=== PATIENT | female | born 1940 | race Caucasian/White ===

== ENCOUNTER 2016-06-29 06:33 | Inpatient (IN) | payer MEDICARE, BC ==
[2016-06-29] VITALS (10 sets, daily range): BP systolic 94–162; BP diastolic 47–70
[~2016-06-29] VITALS: Ht 170.2 cm; Wt 72.0 kg
[~2016-06-29 06:33] MED LIST: (NONE)25 ML; (NONE)25 ML IM; ALENDRONATE70 MG PO; ALPRAZOLAM0.5 M1 PO; ALPRAZOLAM1 MG PO; ALTACE10 M1 PO; ALTACE10 MG PO; ALTACE2.5 MG OR; AMLODIPINE5 MG PO; ASPIRIN325 M1 OR; ASPIRIN325 MG PO; CALCIUM600 M1 PO; CELEXA10 MG OR; CYANOCOBALAM1000 MC1 IM; CYANOCOBALAM1000 MCG IJ; CYANOCOBALAM1000 MCG IM; CYMBALTA30 MG PO; D31000 UNIT PO; EFFEXOR XR37.5 MG PO; EFFEXOR37.5 MG OR; FLUARIX QUADRIV1 IN1 IM; FLUARIX QUADRIV1 INJ IM; GABAPENTIN300 MG PO; HUMULIN R1 M1 SC; IMDUR30 MG OR; ISOSORB MONO30 MG PO; ISOSORBIDE MONO30 MG PO; LIPITOR10 MG OR; LIPITOR40 M1 PO; LIPITOR40 MG PO; LO-DOSE ASA81 MG PO; METFORMIN500 M1 OR; NEURONTIN300 MG OR; NITRO; NORVASC PO; NORVASC5 MG OR; NORVASC5 MG PO; NOVOLIN 70/30 SC; PHENAZOPYRID200 MG PO; PNEUMOVAX 23 IM; RAMIPRIL2.5 MG PO; SYNTHROID OR; SYNTHROID50 MCG OR; SYNTHROID75 MCG PO; TRAMADOL HCL50 MG PO; VENLAFAXINE37.5 M2 PO; VITAMIN B-121000 MC1; VITAMIN B-121000 MC1 IM; XANAX0.25 MG OR; [UNRECOGNIZED DRUG - OTHER]
--- NOTE | 2016-06-29 06:33 | NUR ---
PT. IMMEDIATELY TO TREATMENT ROOM #10 ON ARRIVAL TO ED.
[2016-06-29 07:00] LABS: HEMATOCRIT 36.9 % (37.0-47.0); HEMOGLOBIN 12.3 g/dl (12.0-16.0); IMMATURE GRANULOCYTES 1.2 % (0.0-1.0); MEAN CELL VOLUME 90.9 fL CALC (80.0-100.0); MEAN CORPUSCULAR HGB 30.3 pG CALC (26.0-32.0); MEAN CORPUSCULAR HGB CONC 33.3 g/L CALC (32.0-36.0); NEUT# 9.07 thou/uL (2.00-7.15); RED BLOOD COUNT 4.06 mill/uL (4.20-5.60); RED CELL DISTRI WIDTH 12.6 % (11.5-15.5)
[2016-06-29 07:09] LABS: ALKALINE PHOSPHATASE 88 u/l (38-126); ANION GAP 26 (6-22 (CALC)); BILIRUBIN, TOTAL 1.2 mg/dL (0.0-1.4); BUN 26 mg/dL (8-23); BUN/CREATININE RATIO 32 (12-20 (CALC)); CALCIUM 9.4 mg/dL (8.4-10.2); CARBON DIOXIDE 13 mmol/l (22-30); CHLORIDE 100 mmol/l (95-108); CREATININE 0.8 mg/dL (0.5-1.0); GFR > 60 ML/MIN (>=60 (CALC)); GFR FOR AFR.AMER. > 60 ML/MIN (>=60 (CALC)); POTASSIUM 4.6 mmol/l (3.5-5.1); SGOT/AST 59 u/l (9-36); SGPT/ALT 47 u/l (11-66); SODIUM 135 mmol/l (137-146); TOTAL PROTEIN 6.6 g/dL (6.3-8.2)
[2016-06-29 07:17] LABS: GLUCOSE 462 mg/dL (82-115)
[2016-06-29] MEDS ORDERED: ALENDRONATE70 MG PO (07:18)
--- NOTE | 2016-06-29 07:25 | NUR ---
PT ACTIVELY VOMITING. NOTIFIED.
[2016-06-29] MEDS ORDERED: NOVOLOG100 UNIT/M SC (07:29)
--- NOTE | 2016-06-29 07:30 | NUR ---
EMS NS LITER COMPLETE.
--- NOTE | 2016-06-29 07:36 | NUR ---
LACTIC ACID BC1 DRAWN VIA VIRGIN IV START RAC
[2016-06-29 07:40] LABS: MYOGLOBIN 299 ng/mL (0 - 62)
--- NOTE | 2016-06-29 08:12 | NUR ---
EMPTIED 300 OF URINE SENT LAB FOR TESTING
[2016-06-29 08:13] LABS: URINE BILIRUBIN - DIPSTICK NEGATIVE (NEGATIVE); URINE BLOOD DIPSTICK NEGATIVE (NEGATIVE); URINE CLARITY CLEAR; URINE COLOR YELLOW; URINE GLUCOSE - DIPSTICK >=1000 mg/dL (NEGATIVE); URINE KETONE >=80 mg/dL (NEGATIVE); URINE LEUK ESTERASE NEGATIVE (NEGATIVE); URINE NITRITE - DIPSTICK NEGATIVE (Negative); URINE PROTEIN - DIPSTICK NEGATIVE (NEG-TRACE); URINE UROBILINOGEN - DIPSTICK 0.2 E.U./dL (0.2)
--- NOTE | 2016-06-29 08:18 | NUR ---
PT RESTING ON STRETCHER. RESP EVEN AND UNLABORED. SKIN WARM AND DRY. PT A&O X3. PT STATES NAUSEA IS "MUCH BETTER". ZOSYN INFUSING. INSULING GTT INFUSING AT 5 UNITS/HR. NS BOLUS INFUSING. ALL PER MD ORDER. BOTH IV SITES HEALTHY. PT AWAITING ADMISSION. FAMILY AT BEDSIDE. PT STATES NO NEEDS AT THIS TIME. CALL LIGHT WITHIN REACH.
--- NOTE | 2016-06-29 08:46 | NUR ---
INSULING GTT REMAINING AT 5 UNITS/HR FOR ACCUCHECK OF 407
--- NOTE | 2016-06-29 09:11 | NUR ---
PT RESTING COMFORTABLY ON STRETCHER. RESP EVEN AND UNLABORED. SKIN WARM AND DRY. PT A&O X3. FAMILY AT BEDSIDE. PT DENIES NAUSEA. PT STATES FEELS MUCH BETTER. PT AWAITING ADMISSION. CALL LIGHT WITHIN REACH.
--- NOTE | 2016-06-29 09:20 | NUR ---
SECOND LACTIC ACID DRAWN
--- NOTE | 2016-06-29 09:32 | NUR ---
ASSISTED PT UP TO BSC, URINATED WITHOUT DIFFICULTY. NO ADVERSE EFFECTS NOTED. RETURNED TO BED WITHOUT DIFFICULTY
--- NOTE | 2016-06-29 09:47 | NUR ---
INSULIN GTT TITRATED TO 4 UNITS/HR FOR 376 ACCUCHECK
--- NOTE | 2016-06-29 10:46 | NUR ---
BEDSIDE REPORT GIVEN TO NATALIIA BACON AND POLI PALMA LPN.
--- NOTE | 2016-06-29 10:46 | NUR ---
Admission Note Report Given to: NATALIIA BACON AND POLI PALMA LPN Transported by: Wheelchair X Stretcher Transported with: C Nurse Transporter X Patent IV O2 X Boxing Machine Operator PT IN STABLE CONDITION. IV SITE HEALTHY. INSULIN GTT INFUSING AT 4 UNITS/HR FOR ACCUCHECK OF 346
--- NOTE | 2016-06-29 10:55 | NUR ---
PT ARRIVED TO THE UNIT VIA STRETCHER FROM ER, PT ASSISTED WITH SLIDING OVER TO ICU BED PT TOLERATED WELL, HR 102, RESP. 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
--- NOTE | 2016-06-29 11:15 | NUR ---
PT ASSISTED TO THE BSC THEN BACK TO BED, PT AMBULATED WITH A STRONG STEADY GAIT, PT REMINDED TO CALL FOR ASSISTANCE, CALL GONZALEZ WITHIN REACH
--- NOTE | 2016-06-29 11:45 | NUR ---
PT LAYING IN BED TALKING TO FAMILY WHO ARE BEDSIDE
[2016-06-29 12:09] LABS: ANION GAP 23 (6-22 (CALC)); BUN 25 mg/dL (8-23); BUN/CREATININE RATIO 31 (12-20 (CALC)); CALCIUM 8.7 mg/dL (8.4-10.2); CARBON DIOXIDE 11 mmol/l (22-30); CHLORIDE 108 mmol/l (95-108); CREATININE 0.8 mg/dL (0.5-1.0); GFR > 60 ML/MIN (>=60 (CALC)); GFR FOR AFR.AMER. > 60 ML/MIN (>=60 (CALC)); GLUCOSE 294 mg/dL (82-115); POTASSIUM 4.9 mmol/l (3.5-5.1); SODIUM 138 mmol/l (137-146)
--- NOTE | 2016-06-29 12:38 | NUR ---
IN TO SEE PATIENT, PLAN OF CARE DISCUSSED, AWARE OF RECENT CHEM 7 RESULTS,AND ACCU CHECK RESULTS.
--- NOTE | 2016-06-29 13:30 | NUR ---
PT RESTING WITH EYES CLOSED, AROUSES EASILY TO VERBAL STIMULI, VERBALIZES NO COMPLAINTS, CALL GONZALEZ WITHIN REACH
--- NOTE | 2016-06-29 15:07 | NUR ---
PT WATCHING TV, VERBALIZES NO COMPLAINTS, NO S/S OF DISTRESS, CALL GONZALEZ WITHIN REACH
[2016-06-29 15:58] LABS: HEMATOCRIT 32.1 % (37.0-47.0); HEMOGLOBIN 10.9 g/dl (12.0-16.0); IMMATURE GRANULOCYTES 0.3 % (0.0-1.0); MEAN CELL VOLUME 91.5 fL CALC (80.0-100.0); MEAN CORPUSCULAR HGB 31.1 pG CALC (26.0-32.0); NEUT# 6.25 thou/uL (2.00-7.15); RED BLOOD COUNT 3.51 mill/uL (4.20-5.60); RED CELL DISTRI WIDTH 13.1 % (11.5-15.5)
[2016-06-29 16:20] LABS: ANION GAP 16 (6-22 (CALC)); BUN 25 mg/dL (8-23); BUN/CREATININE RATIO 32 (12-20 (CALC)); CALCIUM 8.5 mg/dL (8.4-10.2); CARBON DIOXIDE 20 mmol/l (22-30); CHLORIDE 108 mmol/l (95-108); CREATININE 0.8 mg/dL (0.5-1.0); GFR > 60 ML/MIN (>=60 (CALC)); GFR FOR AFR.AMER. > 60 ML/MIN (>=60 (CALC)); GLUCOSE 189 mg/dL (82-115); POTASSIUM 4.5 mmol/l (3.5-5.1); SODIUM 140 mmol/l (137-146)
--- NOTE | 2016-06-29 17:16 | NUR ---
PT GIVEN ICE CHIPS AND TOLERATING WELL, PT VERBALIZES NO COMPLAINTS, CALL GONZALEZ WITHIN REACH
--- NOTE | 2016-06-29 17:45 | NUR ---
SETUP ASSISTANCE PROVIDED WITH PM MEAL, PT SHOWS NO S/S OF DISTRESS, REMINDED TO US CALL LIGHT FOR ASSISTANCE, CALL GONZALEZ WITHIN REACH
--- NOTE | 2016-06-29 18:50 | NUR ---
REPORT FROM Steven PILLAI LPN. ASSUMED PT. CARE.
--- NOTE | 2016-06-29 20:30 | NUR ---
PT. ASSISTED TO BSC. PT. AMBULATORY FROM COMMODE BACK TO BED IN NO DISTRESS. APPROX 350 CC OF CONCENTRATED URINE OUT AT THIS TIME. REPOSITIONED FOR COMFORT. DENIES OTHER COMPLAINTS OR NEEDS. DENIES PAIN AT THIS TIME.
--- NOTE | 2016-06-29 21:15 | NUR ---
PT. REQUESTING HER XANAX FOR SLEEP. CALL PLACED TO DR. DONOHUE FOR MED REQUEST. WILL ADMINISTER WHEN PROFILED BY PHARMACY. DENIES COMPLAINTS OF PAIN OR NEED AT THIS TIME. VSS.
--- NOTE | 2016-06-29 22:49 | NUR ---
PT. RESTING IN BED WITH EYES CLOSED. REMAINS AROUSABLE TO LIGHT VERBAL STIMULI. DENIES COMPLAINTS OR NEEDS AT THIS TIME. VSS. WILL CONTINUE TO MONITOR.
[2016-06-30] VITALS: BP 152/69
--- NOTE | 2016-06-30 00:15 | NUR ---
PT. REMAINS STABLE AT THIS TIME. VSS. DENIES COMPLAINTS OR NEEDS. REMAINS ROUSABLE TO LIGHT VERBAL STIMULI. IV FLUIDS CONTINUE TO INFUSE AT 150 ML/HR. CALL LIGHT REMAINS WITHIN REACH. WILL CONTINUE TO MONITOR.
--- NOTE | 2016-06-30 01:42 | NUR ---
PT. REMAINS RESTING IN BED WITH EYES CLOSED. RESPS EVEN AND UNLABORED. SKIN WARM AND DRY. VSS.
[2016-06-30 02:00] VITALS: BP 155/71
--- NOTE | 2016-06-30 03:19 | NUR ---
PT. AWAKE, ALERT, ORIENTED X 3. ASSISTED TO BSC. STEADY. IV FLUIDS CONTINUE TO INFUSE. PT. DENIES OTHER COMPLAINT OR NEED. VSS. CALL LIGHT WITHIN REACH. WILL CONTINUE TO MONITOR. APPROX 150 CC URINARY OUTPUT AT THIS TIME.
[2016-06-30 04:00] VITALS: BP 155/69
--- NOTE | 2016-06-30 04:00 | NUR ---
LAB AT BEDSIDE AT THIS TIME. PT. SPO2 HAS DECREASED TO UPPER 80'S. PT. PLACED ON 2L VIA NC. PT. IS IN NO DISTRESS AND REMAINS SINUS RHYTHM. NO TACHYCARDIA OR TACHYPNEIA NOTED. SPO2 HAS INCREASED TO 92%. PT. DENIES COMPLAINT OR NEED. SKIN WARM AND DRY. REMAINS AFEBRILE.
[2016-06-30 04:42] LABS: HEMATOCRIT 34.7 % (37.0-47.0); HEMOGLOBIN 11.6 g/dl (12.0-16.0); IMMATURE GRANULOCYTES 0.2 % (0.0-1.0); MEAN CELL VOLUME 91.1 fL CALC (80.0-100.0); MEAN CORPUSCULAR HGB 30.4 pG CALC (26.0-32.0); MEAN CORPUSCULAR HGB CONC 33.4 g/L CALC (32.0-36.0); NEUT# 4.78 thou/uL (2.00-7.15); RED BLOOD COUNT 3.81 mill/uL (4.20-5.60); RED CELL DISTRI WIDTH 13.1 % (11.5-15.5)
[2016-06-30 05:01] LABS: ALBUMIN 3.2 g/dL (3.2-5.0); ALKALINE PHOSPHATASE 59 u/l (38-126); ANION GAP 15 (6-22 (CALC)); BILIRUBIN, TOTAL 0.7 mg/dL (0.0-1.4); BUN 17 mg/dL (8-23); BUN/CREATININE RATIO 27 (12-20 (CALC)); CALCIUM 8.5 mg/dL (8.4-10.2); CARBON DIOXIDE 21 mmol/l (22-30); CHLORIDE 106 mmol/l (95-108); CREATININE 0.6 mg/dL (0.5-1.0); GFR > 60 ML/MIN (>=60 (CALC)); GFR FOR AFR.AMER. > 60 ML/MIN (>=60 (CALC)); GLUCOSE 275 mg/dL (82-115); SGOT/AST 42 u/l (9-36); SGPT/ALT 43 u/l (11-66); SODIUM 139 mmol/l (137-146); TOTAL PROTEIN 5.8 g/dL (6.3-8.2)
--- NOTE | 2016-06-30 06:00 | NUR ---
PT. AWAKE, ALERT, ORIENTED X 3. NO DISTRESS. ASSISTED TO BEDSIDE COMMODE. APPROX 500 CC URINE OUT AT THIS TIME. DENIES COMPLAINTS OF PAIN OR NEED.
--- NOTE | 2016-06-30 07:15 | NUR ---
PT ALERT AND ORIENTED OOB WITH STAND BY ASSIST OT USE BSC, VOIDS W/O INCIDENT, PROVIDES OWN NANNETTE CARE AND BACK TO BE WITH SAME ASSIST, AM ASSESSMENT COMPLETED SEE INTERVENTIONS, SKIN WARM DRY AND INTACT, IVF INFUSING AT PRESCRIBED RATE, ACCUC CHECK COMPLETED AND COVERAGE PROVIDED PER ORDERS, SAFETY MEASURES REINFORCED, ENCOURAGED TO CALL FOR ANY NEEDED ASSISTANCE, WILL CONTINUE TO MONITOR
[2016-06-30 08:00] VITALS: BP 150/65
--- NOTE | 2016-06-30 08:22 | NUR ---
TOLERATED AM MEAL WELL, INTO SEE PATIENT AND PLAN OF CARE DISCUSSED INCLUDING PLANNED D/C TODAY, ALL QUESTIONS ANSWERED, PT VERBALIZES UNDERSTANDING
--- NOTE | 2016-06-30 10:50 | NUR ---
Discharge instructions given. Patient verbalizes understanding of same. Discharged in stable condition via Wheelchair to Home with family. All belongings sent with pt.
== END 2016-06-30 10:50 | disposition home or self-care (01) | DRG 639 ==
LOC: ENPENDDIS → ED 06:33 → ED-I 08:04 → ED 08:14 → ICU 08:15
PROVIDERS: Emergency Medicine; ADMIT Internal Medicine Geriatric Medicine; ATTEND Internal Medicine Geriatric Medicine
DX: E13.10 Other specified diabetes mellitus with ketoacidosis without coma (principal); E86.0 Dehydration; I10 Essential (primary) hypertension; I25.10 Atherosclerotic heart disease of native coronary artery without angina pectoris; M19.90 Unspecified osteoarthritis, unspecified site; E03.9 Hypothyroidism, unspecified; H54.42 Blindness, left eye, normal vision right eye; F41.1 Generalized anxiety disorder; M81.0 Age-related osteoporosis without current pathological fracture; Z96.41 Presence of insulin pump (external) (internal); Z79.4 Long term (current) use of insulin

== ENCOUNTER → 2018-04-11 | Outpatient (REF) | payer MEDICARE, BC ==
[~2018-04-11] MED LIST changes: +NOVOLOG100 UNIT/M SC
== END | disposition home or self-care (01) ==
LOC: MAMMO 09:18
PROVIDERS: ATTEND Internal Medicine Geriatric Medicine
DX: Z12.31 Encounter for screening mammogram for malignant neoplasm of breast (principal)

== ENCOUNTER → 2018-04-26 | Outpatient (REF) | payer MEDICARE, BC ==
[2018-04-26 10:00] LABS: ALBUMIN 4.1 g/dL (3.2-5.0); ALKALINE PHOSPHATASE 61 u/l (38-126); BILIRUBIN, TOTAL 0.8 mg/dL (0.0-1.4); BUN 18 mg/dL (8-23); BUN/CREATININE RATIO 22 (12-20 (CALC)); CARBON DIOXIDE 28 mmol/l (22-30); CHLORIDE 102 mmol/l (95-108); CREATININE 0.8 mg/dL (0.5-1.0); GFR > 60 ML/MIN (>=60 (CALC)); GFR FOR AFR.AMER. > 60 ML/MIN (>=60 (CALC)); SGOT/AST 19 u/l (9-36); SODIUM 137 mmol/l (137-146); TOTAL PROTEIN 6.5 g/dL (6.3-8.2)
[2018-04-26 10:02] LABS: ANION GAP 11 (6-22 (CALC)); POTASSIUM 4.2 mmol/l (3.5-5.1)
[2018-04-26 10:13] LABS: HEMATOCRIT 40.7 % (37.0-47.0); HEMOGLOBIN 13.3 g/dl (12.0-16.0); IMMATURE GRANULOCYTES 0.3 % (0.0-5.0); MEAN CELL VOLUME 93.6 fL CALC (80.0-100.0); MEAN CORPUSCULAR HGB 30.6 pG CALC (26.0-32.0); MEAN CORPUSCULAR HGB CONC 32.7 g/L CALC (32.0-36.0); NEUT# 1.84 thou/uL (2.00-7.15); RED BLOOD COUNT 4.35 mill/uL (4.20-5.60); RED CELL DISTRI WIDTH 12.1 % (11.5-15.5)
[2018-04-26 10:31] LABS: TSH, 3RD GENERATION 6.94 uIU/mL (0.47 - 4.68)
== END | disposition home or self-care (01) ==
LOC: LAB 08:30
PROVIDERS: ATTEND Internal Medicine Geriatric Medicine
DX: I10 Essential (primary) hypertension (principal); E03.9 Hypothyroidism, unspecified

== ENCOUNTER 2023-07-31 12:50 | Observation (INO) | payer MEDICARE, BC ==
[2023-07-31] VITALS (33 sets, daily range): BP systolic 132–209; BP diastolic 66–176
[~2023-07-31] VITALS: Ht 170.2 cm; Wt 69.0 kg
[~2023-07-31 12:50] MED LIST changes: +ABALOPARATIDE; +AMLODIPINE BES2.5 MG PO; +AMLODIPINE BESYL5 MG PO; +ASPIRINCHW 81MG PO; +CARVEDILOL12.5 MG PO; +EZETIMIBE10 MG PO; +LANTUS100 UNIT; +LANTUS100 UNIT SC; +LEVOTHYROXIN75 MC1 PO; +LEVOTHYROXIN75 MCG PO; +LIPITOR80 M1 PO; +LOSARTAN POTASS50 MG PO; +NITROSTAT0.4 MG SL; +NOVOLOG100 UNIT SC; +POT CHLORIDE10 ME5 PO; +PROMETHAZINE HY25 M1 PO; +VENLAFAXINE H37.5 M2 PO; +VITAMIN D-32000 UNI1 PO
--- NOTE | 2023-07-31 12:50 | NUR ---
PT BROUGHT BACK TO ER ROOM 14 VIA EMS
[2023-07-31 13:16] LABS: BASO% 0.4 % (0-3); HEMATOCRIT 39.6 % (37.0-47.0); HEMOGLOBIN 13.8 g/dl (12.0-16.0); IMMATURE GRANULOCYTES 0.1 % (0.0-5.0); LYMPH% 33.6 % (15-41); MEAN CELL VOLUME 91.5 fL CALC (80.0-100.0); MEAN CORPUSCULAR HGB 31.9 pG CALC (26.0-32.0); MEAN CORPUSCULAR HGB CONC 34.8 g/dL CAL (32.0-36.0); MONO% 7.8 % (2-13); NEUT# 4.45 thou/uL (2.00-7.15); NEUT% 55.1 % (42-76); RED BLOOD COUNT 4.33 mill/uL (4.20-5.60); RED CELL DISTRI WIDTH 12.2 % (11.5-15.5)
[2023-07-31 13:21] LABS: URINE BILIRUBIN - DIPSTICK Negative (NEGATIVE); URINE BLOOD DIPSTICK Negative (NEGATIVE); URINE COLOR Yellow; URINE GLUCOSE - DIPSTICK 500 mg/dL (NEGATIVE); URINE KETONE Negative (NEGATIVE); URINE LEUK ESTERASE Small (NEGATIVE); URINE NITRITE - DIPSTICK Negative (Negative); URINE PROTEIN - DIPSTICK 30 mg/dL (NEG-TRACE); URINE SPECIFIC GRAVITY 1.015; URINE UROBILINOGEN - DIPSTICK 0.2 E.U./dL (0.2)
[2023-07-31 13:29] LABS: URINE BACTERIA MODERATE hpf
[2023-07-31 13:33] LABS: ALBUMIN 4.1 g/dL (3.2-5.0); ALKALINE PHOSPHATASE 92 u/l (38-126); ANION GAP 7 (6-22 (CALC)); BUN 25 mg/dL (8-23); BUN/CREATININE RATIO 31 (12-20 (CALC)); CARBON DIOXIDE 26 mmol/l (22-30); CHLORIDE 102 mmol/l (95-108); CREATININE 0.8 mg/dL (0.5-1.0); ESTIMATED GFR 73 ML/MIN (>=90 (CALC)); LIPASE 77 u/l (23-300); SGOT/AST 30 u/l (9-36); SODIUM 131 mmol/l (137-146); TOTAL PROTEIN 7.1 g/dL (6.3-8.2)
--- NOTE | 2023-07-31 13:53 | NUR ---
PATIENT AMBULATED TO THE BATHROOM .
[2023-07-31] MEDS ORDERED: MAGNESIUM CITRATE 296 ML/BTL PO ONE (14:45)
[2023-07-31] MEDS ORDERED: ASPIRIN 81 MG/TAB PO ONE (14:45)
[2023-07-31] MEDS ORDERED: hydrALAZINE HCL 20 MG/ML VIAL(1 ML) IV ONE (14:55)
[2023-07-31] MEDS ORDERED: MORPHINE SULFATE 4 MG/ML VIAL IV PRN (16:55)
[2023-07-31] MEDS ORDERED: MAGNESIUM HYDROXIDE 30 ML UDC PO PRN (16:55)
[2023-07-31] MEDS ORDERED: ACETAMINOPHEN 325 MG/TAB PO PRN (16:55)
[2023-07-31] MEDS ORDERED: amLODIPine BESYLATE 5 MG/TAB PO SCH ×2 (16:57→17:00)
[2023-07-31] MEDS ORDERED: CARVEDILOL 25 MG/TAB PO SCH (17:00)
[2023-07-31] MEDS ORDERED: ALPRAZolam 1 MG/TAB PO PRN (17:00)
[2023-07-31] MEDS ORDERED: INSULIN LISPRO 100 UNITS/ML ML SC SCH (17:00)
[2023-07-31] MEDS ORDERED: hydrALAZINE HCL 20 MG/ML VIAL(1 ML) IV PRN (17:00)
[2023-07-31] MEDS ORDERED: NITROGLYCERIN 0.4 MG/TAB SL PRN (17:00)
[2023-07-31] MEDS ORDERED: ISOSORBIDE MONONITRATE 30 MG TAB PO SCH (17:02)
--- NOTE | 2023-07-31 18:08 | NUR ---
VERBAL REPORT GIVEN TO EUGENIO BACON. PATIENT TRANSFERED TO THE FLOOR. .
--- NOTE | 2023-07-31 18:47 | NUR ---
PT ARRIVED TO FLOOR @ 1817PM FROM THE ED. REPORT WAS GIVEN BY KASSIDY BACON. PT IS AOX3. WITH SOME INTERMITTEN CONFUSION, DAUGHTER VERBALIZED THIS BEING PATIENT'S BASELINE.PART A OF ADMISSION IS COMPLETED. PATIENT WAS INSTRUCTED TO CALL FOR ASSISTANCE AND TO NEVER GET UP BY HERSELF. PT VERBALIZED UNDERTSTANDING. ALLERGIES VERIFIED AND ALLERGY BAND APPLIED. BED SIDE COMMODE IS PRESENT, CALL LIGHT IS IN REACH.
--- NOTE | 2023-07-31 20:00 | NUR ---
PATIENT SITTING UP IN THE BED-AWAKE ALERT AND ORIENTEDX3. PATIENT WITH SOME ANXIETY REGUARDING ADMISSION. PATIENT ORIENTED TO ROOM AND SURROUNDINGS. INSTRUCTED ON USE OF NURSE CALL LIGHT SYSTEM. TELE MONITOR IN PLACE WITH LAST READING SR-80'S. SALINE LOCK TO LEFT WRIST INTACT WITH GOOD BLOOD RETURN WHEN FLUSHED. PATIENT ASSISTED OOB TO THE BSC FOR LOOSE BM AND VOIDING LEVI URINE. ASSISTED BACK TO BED. LUNGS ARE CLEAR. ABD IS SOFT WITH ACTIVE BS. NO PERIPHERAL EDEMA NOTED. PULSES PALPABLE. CALL LIGHT IN REACH. WILL CONT TO MONITOR.
[2023-07-31] MEDS ORDERED: ATORVASTATIN CALCIUM 40 MG/TAB PO SCH (21:00)
[2023-07-31] MEDS ORDERED: Polyethylene Glycol 3350 17 GM/PKT PO SCH (21:00)
[2023-07-31] MEDS ORDERED: METOPROLOL TARTRATE 25 MG/TAB PO SCH (21:00)
[2023-07-31] MEDS ORDERED: INSULIN DETEMIR 100 UNITS/ML SC SCH (21:00)
[2023-07-31] MEDS ORDERED: ENOXAPARIN SODIUM 40 MG/0.4 ML SYR SC SCH (21:00)
--- NOTE | 2023-07-31 21:09 | NUR ---
pt glucose @1999 was 304
--- NOTE | 2023-07-31 22:00 | NUR ---
PATIENT RESTING IN BED-BLOOD SUGAR WAS 304-MEDICATED WITH HUMALOG 10UNITS SQ PER SS COVERAGE PROTOCOL. LEVEMIR 22 UNITS GIVEN SCHEDULED. P[ROVIDED WITH HS SNACK. MEDICATED WITH XANAX 1MG PO FOR ANXIETY AND SLEEP. CALL LIGHT IN REACH. WILL CONT TO MONITOR.
[2023-08-01] VITALS (9 sets, daily range): BP systolic 128–170; BP diastolic 49–76
--- NOTE | 2023-08-01 01:46 | NUR ---
PATIENT AWAKE AND ASKING FOR MORE XANAX-STATES THAT SHE JUST CAN'T SLEEP EVEN AFTER GETTING HER XANAX EARLIER. INFORMED PATIENT THAT IT IS TOO EARLY FOR MORE XANAX AT THIS TIME. MEDICATED WITH MORPHINE 2MG IVP FOR GENERALIZED PAIN 6/10 ON PAIN SCALE. CALL LIGHT IN REACH.
--- NOTE | 2023-08-01 02:15 | NUR ---
PATIENT BLOOD SUGAR ALARM GOING OFF. BLOOD SUGAR CHECKED AND WAS 68-PROVIDED PATIENT WITH SNACKS AND EATING WITHOUT ANY DIFFICULTY. AGAIN VERY HIGH ANXIETY. CALL LIGHT IN REACH, WILL CONT TO MONITOR.
--- NOTE | 2023-08-01 02:57 | NUR ---
RECHECKED BLOOD SUGAR AND WAS 108 AT THIS TIME AFTER EATING SNACKS. STILL VERY HIGH ANXIETY. WILL MEDICATE AGAIN WITH XANAX 1MG PO FOR ANXIETY. CALL LIGHT IN REACH. WILL CONT TO MONITOR.
--- NOTE | 2023-08-01 03:18 | NUR ---
pt glucose @0130 - 51 pt glucose @8464 - 848
--- NOTE | 2023-08-01 05:29 | NUR ---
pt glucose @0500 was 198
--- NOTE | 2023-08-01 05:30 | NUR ---
PATIENT RESTING IN BED. BLOOD SUGAR RECHECK WAS 198. RESTING WITH EYES CLOSED AT THIS TIME. RESPS ARE EVEN AND UNLABORED. TELE MONITOR IN PLACE. SALINE LOCK TO LEFT WRIST INTACT. CALL LIGHT IN REACH. WILL CONT TO MONITOR.
[2023-08-01 05:58] LABS: BASO% 0.4 % (0-3); EOS% 4.1 % (0-8); HEMOGLOBIN 12.3 g/dl (12.0-16.0); IMMATURE GRANULOCYTES 0.3 % (0.0-5.0); LYMPH% 40.7 % (15-41); MEAN CELL VOLUME 93.8 fL CALC (80.0-100.0); MEAN CORPUSCULAR HGB CONC 34.2 g/dL CAL (32.0-36.0); MONO% 11.4 % (2-13); NEUT# 3.26 thou/uL (2.00-7.15); NEUT% 43.1 % (42-76); RED BLOOD COUNT 3.84 mill/uL (4.20-5.60); RED CELL DISTRI WIDTH 12.7 % (11.5-15.5)
[2023-08-01] MEDS ORDERED: LEVOTHYROXINE SODIUM 75 MCG/TAB PO SCH (06:00)
[2023-08-01 06:12] LABS: CHOLESTEROL HDL RATIO 3.3 (<4.4 (CALC)); MAGNESIUM 2.3 mg/dL (1.6-2.3); POTASSIUM 3.4 mmol/l (3.5-5.1)
[2023-08-01 06:14] LABS: ALBUMIN 3.1 g/dL (3.2-5.0); BILIRUBIN, TOTAL 0.5 mg/dL (0.02-1.3); TOTAL PROTEIN 5.5 g/dL (6.3-8.2)
--- NOTE | 2023-08-01 07:00 | NUR ---
SHIFT CHANGE REPORT, PT AWAKE ALERT AND ORIENTED RESTING IN BED, C/O LOWER ABD PAIN AND HAVING DIARRHEA, WANTS TO KNOW IF THE MD WILL KEEP HER HERE TONIGHT STATING SHE DOES NOT FEEL GOOD ENOUGH TO GO HOME TODAY, ADVISED TO ADDRESS COMPLAINS WITH MD WHENEVER HE ROUNDS. TELE MONITOR IN PLACE AND BED LOCKED IN LOWEST POSITION.
--- NOTE | 2023-08-01 07:54 | NUR ---
BOOKED A CARDIOLOGY CONSULT WITH DR KUMAR VIA THE [facility] [employer] [facility] AT 0754 HRS.
[2023-08-01] MEDS ORDERED: ASPIRIN 81 MG/TAB PO SCH (09:00)
--- NOTE | 2023-08-01 09:15 | NUR ---
MUSIC COMPOSER CONSULTED VIRTUALLY AND DISCUSSED PLAN OF CARE, PT JUST WANTED TO REQUEST STAYING IN HOSPITAL OVERNIGHT TONIGHT STATING SHE DOES NOT FEEL GOOD BUT WAS NOT SPECIFIC WITH HER DESCRIPTION OF HOW SHE FEELS.
--- NOTE | 2023-08-01 11:22 | NUR ---
ASSISTED TO BSC THEN BACK TO BED AFTER TOILETTING, SOAP AND WATER OFFERED TO CLEAN HANDS.
--- NOTE | 2023-08-01 13:00 | NUR ---
TRANSPORTED OFF UNIT VIA W/C TO ECHO PROCEDURE, RETURNED TO ROOM AT COMPLETION OF PROCEDURE, SETTLED IN BED, CALL GONZALEZ IN REACH.
--- NOTE | 2023-08-01 16:00 | NUR ---
ASSISTED TO BSC AND BACK TO BED, NO NEW COMPLAINS.
--- NOTE | 2023-08-01 20:00 | NUR ---
BEDSIDE SHIFT REPORT COMPLETED. RESP EVEN AND UNLABORED. C/O HEADACHE, ASKED FOR MEDICATION. CALL LIGHT IN REACH.
[2023-08-02] VITALS (8 sets, daily range): BP systolic 128–174; BP diastolic 50–82
--- NOTE | 2023-08-02 | NUR ---
MEDICATED WITH MORPHINE FOR C/O HEADACHE WITH GOOD RESULTS. CURRENTLY IN BED, WITH EYES CLOSED. NO S/S OF PAIN OR DISTRETT, CALL LIGHT IN REACH. CALL FOR ASSISTANCE TO BATHROOM. AMBULATORY WITH UNSTEADY GAIT.
--- NOTE | 2023-08-02 05:00 | NUR ---
MEDICATED WITH MORPHINE FOR C/O HEADACHE WITH GOOD RESULTS. STATES HEADACHE IS ALMOST GONE RIGHT NOW. SLEPT ON AND OFF THROUGHOUT THE NIGHT,
[2023-08-02 05:29] LABS: BASO% 0.4 % (0-3); EOS% 4.1 % (0-8); HEMATOCRIT 37.5 % (37.0-47.0); HEMOGLOBIN 12.7 g/dl (12.0-16.0); IMMATURE GRANULOCYTES 0.4 % (0.0-5.0); LYMPH% 32.8 % (15-41); MEAN CELL VOLUME 93.3 fL CALC (80.0-100.0); MEAN CORPUSCULAR HGB 31.6 pG CALC (26.0-32.0); MEAN CORPUSCULAR HGB CONC 33.9 g/dL CAL (32.0-36.0); MONO% 11.3 % (2-13); NEUT# 3.73 thou/uL (2.00-7.15); RED BLOOD COUNT 4.02 mill/uL (4.20-5.60); RED CELL DISTRI WIDTH 12.6 % (11.5-15.5)
[2023-08-02 05:58] LABS: ALBUMIN 3.4 g/dL (3.2-5.0); BILIRUBIN, TOTAL 0.4 mg/dL (0.02-1.3); CREATININE 0.8 mg/dL (0.5-1.0); POTASSIUM 3.6 mmol/l (3.5-5.1); TOTAL PROTEIN 5.9 g/dL (6.3-8.2)
--- NOTE | 2023-08-02 07:00 | NUR ---
REPORT RECEIVED FROM ANDRZEJRN
--- NOTE | 2023-08-02 08:25 | NUR ---
PT RESTING IN SEMI FOWLERS POSITION,A&O X3;VS OBTAINED AND ASSESSMENT COMPLETED;PT DENIES ANY CURRENT PAIN BUT DOES REQUEST PRN XANAX, PT MEDICATED WITH PRN XANAX 1MG PO PER ORDERS;RESPIRATIONS EVEN AND UNLABORED ON RA,CLEAR LUNG SOUNDS;ABDOMEN SOFT ON PALPATION AND ACTIVE IN ALL 4 QUADRANTS-MIRLAX PROVIDED TO ASSIST WITH BOWEL CARE;WEAK PEDAL PULSES;SKIN INTACT;TELE MONITORING IN PLACE;#22G TO LFA FLUSHED AND PATENT,SITE APPEARS HEALTHY;PT DENIES ANY ADDITIONAL NEEDS AND IS ENCOURAGED TO CALL FOR ASSISTANCE IF NEEDED;FALL PRECAUTIONS REMAIN IN PLACE WITH BED IN THE LOWEST POSITION AND CALL LIGHT IN REACH;FREQUENT ROUNDS MADE.
[2023-08-02] MEDS ORDERED: CIPROFLOXACIN HCL 500 MG/TAB PO SCH (09:00)
[2023-08-02] MEDS ORDERED: amLODIPine BESYLATE 5 MG/TAB PO SCH (09:00)
--- NOTE | 2023-08-02 09:49 | NUR ---
AT BEDSIDE DISCUSSING POC WITH PT.
--- NOTE | 2023-08-02 11:20 | NUR ---
PT RESTING IN SEMI FOWLERS POSITION WITH FRIEND AT BEDSIDE;RESPIRATIONS REMAIN EVEN AND UNLABORED ON RA;PT DENIES ANY CURRENT PAIN OR NEEDS;TELE MONITORING IN PLACE;IV SITE PATENT;ACCUCHECK 339, PT COVERED WITH SLIDING SCALE INSULIN PER ORDER;ENCOURAGED TO CALL FOR ASSISTANCE IF NEEDED;CALL LIGHT IN REACH;FREQUENT ROUNDS MADE.
--- NOTE | 2023-08-02 11:59 | NUR ---
patient ambulated down hallway.
--- NOTE | 2023-08-02 15:30 | NUR ---
PT RESTING IN SEMI FOWLERS POSITION WITH DAUGHTER AT BEDSIDE;RESPIRATIONS REMAIN EVEN AND UNLABORED ON RA;PT DENIES ANY CURRENT PAIN OR NEEDS;TELE MONITORING IN PLACE;IV SITE TO LFA PATENT;PT DENIES ANY ADDITIONAL NEEDS AND IS ENCOURAGED TO CALL FOR ASSISTANCE IF NEEDED;CALL LIGHT IN REACH;FREQUENT ROUNDS MADE.
--- NOTE | 2023-08-02 17:15 | NUR ---
CARDIOLOGY CONSULT COMPLETED AT THIS TIME.
--- NOTE | 2023-08-02 19:24 | NUR ---
PATIENT OBSERVED RESTING IN BED. NO DISTRESS NOTED. NO COMPLAINTS OF PAIN. DOES APPEAR TO GET HERSELF WORKED UP AT TIMES. EASILY REDIRECTED. ASSESSMENT COMPLETE. 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 DENIES NEEDING ANYTHING AT THIS TIME.
[2023-08-03] VITALS (9 sets, daily range): BP systolic 135–180; BP diastolic 56–70
--- NOTE | 2023-08-03 00:10 | NUR ---
PATIENT REMAINS RESTING IN BED. DENIES NEEDING ANYTHING AT THIS TIME. BED REMAINS IN LOW POSITION. CALL GONZALEZ IN REACH.
--- NOTE | 2023-08-03 04:24 | NUR ---
PATIENT REMAINS RESTING IN BED. DENIES NEEDING ANYTHING AT THIS TIME. BED REMAINS IN LOW POSITION. CALL GONZALEZ IN REACH.
[2023-08-03 06:05] LABS: BASO% 0.3 % (0-3); HEMATOCRIT 36.5 % (37.0-47.0); HEMOGLOBIN 12.2 g/dl (12.0-16.0); IMMATURE GRANULOCYTES 0.3 % (0.0-5.0); LYMPH% 39.8 % (15-41); MEAN CELL VOLUME 94.6 fL CALC (80.0-100.0); MEAN CORPUSCULAR HGB 31.6 pG CALC (26.0-32.0); MEAN CORPUSCULAR HGB CONC 33.4 g/dL CAL (32.0-36.0); MONO% 12.9 % (2-13); NEUT# 2.54 thou/uL (2.00-7.15); NEUT% 42.7 % (42-76); RED BLOOD COUNT 3.86 mill/uL (4.20-5.60); RED CELL DISTRI WIDTH 12.5 % (11.5-15.5)
[2023-08-03 06:47] LABS: CREATININE 0.9 mg/dL (0.5-1.0); MAGNESIUM 1.8 mg/dL (1.6-2.3); POTASSIUM 4.2 mmol/l (3.5-5.1); TOTAL PROTEIN 5.4 g/dL (6.3-8.2)
[2023-08-03 06:56] LABS: BILIRUBIN, TOTAL 0.6 mg/dL (0.02-1.3)
[2023-08-03] MEDS ORDERED: Polyethylene Glycol 3350 17 GM/PKT PO SCH (09:00)
[2023-08-03] MEDS ORDERED: ISOSORB MONO30 MG PO (09:31)
[2023-08-03] MEDS ORDERED: CIPROFLOXACN500 MG PO (09:32)
--- NOTE | 2023-08-03 10:26 | NUR ---
BLOOD SUGAR 502. NOTIFIED, RN TO GIVE SLIDING SCALE DOSE PER ORDERS
--- NOTE | 2023-08-03 10:42 | NUR ---
nurse notified of patient glucose level is 502.
--- NOTE | 2023-08-03 15:33 | NUR ---
Patient resting in bed, bed locked and low. Call light within reach. No apparent distress observed or reported by patient. Plan of care reviewed with patient, questions encouraged and answered to best ability within scope of practice. No further questions at this time. Patient encouraged to call if any needs were to arise. Will continue to monitor.
--- NOTE | 2023-08-03 19:18 | NUR ---
PATIENT OBSERVED RESTING IN BED. ASSESSMENT COMPLETE. NO DISTRESS NOTED. NO COMPLAINTS OF PAIN. NEEDS FREQUENT REDIRECTING. DENIES NEEDING ANYTHING AT THIS TIME.
[2023-08-03] MEDS ORDERED: INSULIN DETEMIR 100 UNITS/ML SC SCH (21:00)
--- NOTE | 2023-08-04 | NUR ---
REMAINS RESTING IN BED. DENIES NEEDING ANYTHING AT THIS TIME. BED REMAINS IN LOW POSITION. CALL GONZALEZ IN REACH.
[2023-08-04 00:07] VITALS: BP 143/61
--- NOTE | 2023-08-04 04:00 | NUR ---
PATIENT REMAINS RESTING IN BED. DENIES NEEDING ANYTHING AT THIS TIME. BED REMAINS IN LOW POSITION. CALL GONZALEZ AND BELONGINGS IN REACH.
[2023-08-04 04:14] VITALS: BP 170/71
[2023-08-04 05:42] LABS: BASO% 0.6 % (0-3); EOS% 5.5 % (0-8); HEMOGLOBIN 12.8 g/dl (12.0-16.0); IMMATURE GRANULOCYTES 0.2 % (0.0-5.0); LYMPH% 40.6 % (15-41); MEAN CORPUSCULAR HGB 32.2 pG CALC (26.0-32.0); MEAN CORPUSCULAR HGB CONC 34.6 g/dL CAL (32.0-36.0); MONO% 12.2 % (2-13); NEUT# 2.62 thou/uL (2.00-7.15); NEUT% 40.9 % (42-76); RED BLOOD COUNT 3.98 mill/uL (4.20-5.60); RED CELL DISTRI WIDTH 12.3 % (11.5-15.5)
[2023-08-04 05:57] LABS: ALBUMIN 3.4 g/dL (3.2-5.0); BILIRUBIN, TOTAL 0.6 mg/dL (0.02-1.3); CREATININE 0.8 mg/dL (0.5-1.0); POTASSIUM 3.9 mmol/l (3.5-5.1); TOTAL PROTEIN 5.9 g/dL (6.3-8.2)
[2023-08-04 06:51] VITALS: BP 157/73
--- NOTE | 2023-08-04 07:00 | NUR ---
PATIENT RESTING IN BED WITH EYES CLOSED BUT EASILY AROUSE. PATIENT IS A&OX4 AND ABLE TO MAKE NEEDS KNOWN. ABDOMEN IS SOFT AND NON TENDER, RESPIRATIONS EVEN AND UNLABORED. PATIENT DENIES ANY NEEDS AT THIS TIME. WILL CONTINUE TO MONITOR.
[2023-08-04] MEDS ORDERED: INSULIN DETEMIR 100 UNITS/ML SC SCH (09:00)
[2023-08-04 10:44] VITALS: BP 133/67
--- NOTE | 2023-08-04 10:45 | NUR ---
nurse notified of patient glucose level is 412.
--- NOTE | 2023-08-04 11:53 | NUR ---
PATIENT RESTING IN BED. FAMILY AT BEDSIDE. PATIENT IS WAITING ON LUNCH TO ARRIVE. PATIENT DENIES ANY NEEDS AT THIS TIME. WILL CONTINUE TO MONITOR.
[2023-08-04 14:40] VITALS: BP 152/64
--- NOTE | 2023-08-04 15:43 | NUR ---
PATIENT GOING TO [facility] TODAY. THIS ARCHIVIST ECONOMIC HISTORY CALLED REPORT TO NURSE QUINTANILLA AT [facility].
--- NOTE | 2023-08-04 15:58 | NUR ---
PATIENT SITTING UP IN BED. FAMILY AT BEDSIDE. PATIENT DENIES ANY NEEDS AT THIS TIME. WILL CONTINUE TO MONITOR.
--- NOTE | 2023-08-04 18:38 | NUR ---
Discharge instructions given. Patient verbalizes understanding of same. Discharged in stable condition via [facility]. All belongings sent with pt. PATIENT IV AND TELE REMOVED AND PLACED IN NURSING STATION.
== END 2023-08-04 18:40 ==
LOC: ED 12:50 → ED-I 15:00 → ED 15:59 → MS2 16:00
PROVIDERS: Nurse Practitioner; Nurse Practitioner Family; ADMIT Student in an Organized Health Care Education/Training Program; ATTEND Student in an Organized Health Care Education/Training Program
DX: I16.1 Hypertensive emergency (principal); I10 Essential (primary) hypertension; N39.0 Urinary tract infection, site not specified; B96.5 Pseudomonas (aeruginosa) (mallei) (pseudomallei) as the cause of diseases classified elsewhere; I25.10 Atherosclerotic heart disease of native coronary artery without angina pectoris; E11.649 Type 2 diabetes mellitus with hypoglycemia without coma; E11.65 Type 2 diabetes mellitus with hyperglycemia; K59.00 Constipation, unspecified; F41.1 Generalized anxiety disorder; E03.9 Hypothyroidism, unspecified; T38.3X6A Underdosing of insulin and oral hypoglycemic [antidiabetic] drugs, initial encounter; Z91.128 Patient's intentional underdosing of medication regimen for other reason; Z79.4 Long term (current) use of insulin
CPT/HCPCS: J1650

== ENCOUNTER 2024-05-07 10:07 | Inpatient (IN) | payer MEDICARE, BC ==
[~2024-05-07] VITALS: Ht 170.2 cm; Wt 67.0 kg
[2024-05-07] VITALS (21 sets, daily range): BP systolic 111–182; BP diastolic 66–128
[~2024-05-07 10:07] MED LIST changes: +CIPROFLOXACN500 MG PO
[2024-05-07 10:48] LABS: BASO% 0.3 % (0-3); EOS% 1.6 % (0-8); HEMOGLOBIN 13.6 g/dl (12.0-16.0); IMMATURE GRANULOCYTES 0.2 % (0.0-5.0); LYMPH% 21.2 % (15-41); MEAN CELL VOLUME 92.6 fL CALC (80.0-100.0); MEAN CORPUSCULAR HGB 30.7 pG CALC (26.0-32.0); MEAN CORPUSCULAR HGB CONC 33.2 g/dL CAL (32.0-36.0); MONO% 8.2 % (2-13); NEUT% 68.5 % (42-76); RED BLOOD COUNT 4.43 mill/uL (4.20-5.60); RED CELL DISTRI WIDTH 12.3 % (11.5-15.5)
[2024-05-07] MEDS ORDERED: KETOROLAC TROMETHAMINE 30 MG/ML SDV IM ONE (10:55)
[2024-05-07 11:03] LABS: ALKALINE PHOSPHATASE 99 u/l (38-126); ANION GAP 12 (6-22 (CALC)); BUN 20 mg/dL (8-23); BUN/CREATININE RATIO 25 (12-20 (CALC)); CARBON DIOXIDE 26 mmol/l (22-30); CHLORIDE 98 mmol/l (95-108); CREATININE 0.8 mg/dL (0.5-1.0); ESTIMATED GFR 73 ML/MIN (>=90 (CALC)); POTASSIUM 4.1 mmol/l (3.5-5.1); SGOT/AST 32 u/l (9-36); SODIUM 133 mmol/l (137-146)
[2024-05-07 11:07] LABS: ALBUMIN 4.4 g/dL (3.2-5.0); BILIRUBIN, TOTAL 1.3 mg/dL (0.02-1.3); TOTAL PROTEIN 7.6 g/dL (6.3-8.2)
[2024-05-07 11:57] LABS: URINE BILIRUBIN - DIPSTICK Negative (NEGATIVE); URINE BLOOD DIPSTICK Trace-intact (NEGATIVE); URINE GLUCOSE - DIPSTICK 100 mg/dL (NEGATIVE); URINE KETONE 15 mg/dL (NEGATIVE); URINE LEUK ESTERASE Negative (NEGATIVE); URINE NITRITE - DIPSTICK Negative (Negative); URINE PROTEIN - DIPSTICK 100 mg/dL (NEG-TRACE); URINE UROBILINOGEN - DIPSTICK 0.2 E.U./dL (0.2)
[2024-05-07] MEDS ORDERED: MORPHINE SULFATE 4 MG/ML VIAL IV ONE (13:00)
[2024-05-07 13:01] LABS: URINE COLOR Yellow
[2024-05-07] MEDS ORDERED: OMEPRAZOLE DR40 MG PO (13:39)
[2024-05-07] MEDS ORDERED: MAGNESIUM HYDROXIDE 30 ML UDC PO PRN (13:40)
[2024-05-07] MEDS ORDERED: ACETAMINOPHEN 325 MG/TAB PO PRN (13:40)
[2024-05-07] MEDS ORDERED: traMADol HCL 50 MG/TAB PO PRN (13:40)
[2024-05-07] MEDS ORDERED: MORPHINE SULFATE 4 MG/ML VIAL IV PRN (13:40)
[2024-05-07 14:30] LABS: URINE RBC 0-2 RBC/hpf (0-5); URINE SQUAMOUS EPITHELIAL CELL FEW EPI/hpf (0-FEW); URINE WBC 0-2 WBC/hpf (0-5)
[2024-05-07 14:31] LABS: URINE AMORPH SEDIMENT FEW hpf (NONE-FEW)
[2024-05-07 14:32] LABS: URINE HYALINE CAST FEW lpf (NONE-RARE)
[2024-05-07] MEDS ORDERED: DEXTROSE 250 ML IV PRN (16:50)
[2024-05-07] MEDS ORDERED: INSULIN LISPRO 100 UNITS/ML ML SC SCH (17:00)
[2024-05-07] MEDS ORDERED: LANTUS100 UNIT SC ×2 (17:21)
[2024-05-07] MEDS ORDERED: VENLAFAXINE HYDROCHLORIDE 37.5 MG/TAB PO SCH (17:30)
[2024-05-07] MEDS ORDERED: ISOSORBIDE MONONITRATE 30 MG TAB PO SCH (17:30)
[2024-05-07] MEDS ORDERED: ATORVASTATIN CALCIUM 40 MG/TAB PO SCH (21:00)
[2024-05-07] MEDS ORDERED: ENOXAPARIN SODIUM 40 MG/0.4 ML SYR SC SCH (21:00)
[2024-05-07] MEDS ORDERED: amLODIPine BESYLATE 2.5 MG/TAB PO SCH (21:00)
[2024-05-07] MEDS ORDERED: INSULIN GLARGINE 100 UNITS/ML SC SCH (21:00)
[2024-05-07] MEDS ORDERED: ALPRAZolam 0.5 MG/TAB PO SCH (21:00)
[2024-05-07] MEDS ORDERED: CARVEDILOL 6.25 MG/TAB PO SCH (21:00)
[2024-05-08] VITALS (9 sets, daily range): BP systolic 137–187; BP diastolic 58–87
[2024-05-08] MEDS ORDERED: LEVOTHYROXINE SODIUM 75 MCG/TAB PO SCH (06:00)
[2024-05-08] MEDS ORDERED: ASPIRIN 81 MG/TAB PO SCH (09:00)
[2024-05-08] MEDS ORDERED: INSULIN GLARGINE 100 UNITS/ML SC SCH ×2 (09:00→12:00)
[2024-05-08] MEDS ORDERED: PANTOPRAZOLE SODIUM Sesquihydr 40 MG/TAB PO SCH (09:00)
[2024-05-08] MEDS ORDERED: INFLUENZA VIRUS VACCINE FLUZONE HD 2024/25 0.5 ML INJ IM SCH (09:00)
[2024-05-09] VITALS (9 sets, daily range): BP systolic 119–168; BP diastolic 55–76
[2024-05-09 05:48] LABS: BASO% 0.2 % (0-3); EOS% 3.1 % (0-8); HEMATOCRIT 38.5 % (37.0-47.0); HEMOGLOBIN 12.6 g/dl (12.0-16.0); IMMATURE GRANULOCYTES 0.2 % (0.0-5.0); LYMPH% 28.6 % (15-41); MEAN CELL VOLUME 95.8 fL CALC (80.0-100.0); MEAN CORPUSCULAR HGB 31.3 pG CALC (26.0-32.0); MEAN CORPUSCULAR HGB CONC 32.7 g/dL CAL (32.0-36.0); MONO% 11.4 % (2-13); NEUT# 4.98 thou/uL (2.00-7.15); NEUT% 56.5 % (42-76); RED BLOOD COUNT 4.02 mill/uL (4.20-5.60); RED CELL DISTRI WIDTH 12.3 % (11.5-15.5)
[2024-05-09 05:56] LABS: BILIRUBIN, TOTAL 0.8 mg/dL (0.02-1.3); CREATININE 0.9 mg/dL (0.5-1.0); MAGNESIUM 2.2 mg/dL (1.6-2.3); TOTAL PROTEIN 6.3 g/dL (6.3-8.2)
[2024-05-09 06:10] LABS: ALBUMIN 3.4 g/dL (3.2-5.0)
[2024-05-09] MEDS ORDERED: Polyethylene Glycol 3350 17 GM/PKT PO SCH (10:30)
[2024-05-09] MEDS ORDERED: TRAMADOL HYDROC50 M1 PO (10:43)
[2024-05-09] MEDS ORDERED: ALPRAZOLAM0.5 M2 PO (10:43)
[2024-05-09] MEDS ORDERED: INSULIN GLARGINE 100 UNITS/ML SC SCH (21:00)
[2024-05-10 05:00] VITALS: BP 168/67
[2024-05-10 05:48] LABS: ALBUMIN 3.5 g/dL (3.2-5.0); CREATININE 0.9 mg/dL (0.5-1.0); MAGNESIUM 2.5 mg/dL (1.6-2.3); POTASSIUM 4.5 mmol/l (3.5-5.1); TOTAL PROTEIN 6.4 g/dL (6.3-8.2)
[2024-05-10 06:02] LABS: BASO% 0.2 % (0-3); EOS% 4.2 % (0-8); HEMATOCRIT 37.3 % (37.0-47.0); HEMOGLOBIN 12.3 g/dl (12.0-16.0); IMMATURE GRANULOCYTES 0.3 % (0.0-5.0); LYMPH% 25.8 % (15-41); MEAN CELL VOLUME 94.4 fL CALC (80.0-100.0); MEAN CORPUSCULAR HGB 31.1 pG CALC (26.0-32.0); MONO% 12.7 % (2-13); NEUT# 4.92 thou/uL (2.00-7.15); NEUT% 56.8 % (42-76); RED BLOOD COUNT 3.95 mill/uL (4.20-5.60); RED CELL DISTRI WIDTH 12.4 % (11.5-15.5)
[2024-05-10 07:00] VITALS: BP 154/58
[2024-05-10] MEDS ORDERED: BISACODYL 10 MG SUPP RE PRN (08:30)
[2024-05-10] MEDS ORDERED: INSULIN GLARGINE 100 UNITS/ML SC SCH (09:00)
[2024-05-10 10:04] VITALS: BP 128/57
[2024-05-10 15:08] VITALS: BP 150/56
[2024-05-10 18:53] VITALS: BP 167/80
[2024-05-10 20:11] VITALS: BP 146/55
[2024-05-11 00:27] VITALS: BP 158/61
[2024-05-11 04:16] VITALS: BP 149/69
[2024-05-11 06:00] LABS: BASO% 0.1 % (0-3); HEMATOCRIT 34.7 % (37.0-47.0); HEMOGLOBIN 11.8 g/dl (12.0-16.0); IMMATURE GRANULOCYTES 0.4 % (0.0-5.0); LYMPH% 30.2 % (15-41); MEAN CELL VOLUME 93.5 fL CALC (80.0-100.0); MEAN CORPUSCULAR HGB 31.8 pG CALC (26.0-32.0); MONO% 12.2 % (2-13); NEUT# 3.94 thou/uL (2.00-7.15); NEUT% 53.1 % (42-76); RED BLOOD COUNT 3.71 mill/uL (4.20-5.60); RED CELL DISTRI WIDTH 12.3 % (11.5-15.5)
[2024-05-11 06:11] LABS: ALBUMIN 3.3 g/dL (3.2-5.0); BILIRUBIN, TOTAL 0.9 mg/dL (0.02-1.3); CREATININE 0.7 mg/dL (0.5-1.0); POTASSIUM 4.3 mmol/l (3.5-5.1); TOTAL PROTEIN 6.2 g/dL (6.3-8.2)
[2024-05-11 07:24] VITALS: BP 146/64
[2024-05-11] MEDS ORDERED: VANCOMYCIN HCL 500 MG in SODIUM CHLORIDE 0.9% 250 ML IV SCH (10:00)
[2024-05-11 15:48] VITALS: BP 141/62
[2024-05-11 19:33] VITALS: BP 149/80
[2024-05-11] MEDS ORDERED: MUPIROCIN (PSEUDOMONAS FLUORES 22 GM/TUBE TUBE TOP SCH (21:00)
[2024-05-11] MEDS ORDERED: MUPIROCIN (PSEUDOMONAS FLUORES 22 GM/TUBE TUBE ONE (21:58)
[2024-05-11 23:53] VITALS: BP 140/79
[2024-05-12 03:51] VITALS: BP 160/77
[2024-05-12 06:01] LABS: BASO% 0.3 % (0-3); EOS% 5.1 % (0-8); HEMATOCRIT 36.5 % (37.0-47.0); HEMOGLOBIN 12.2 g/dl (12.0-16.0); IMMATURE GRANULOCYTES 0.4 % (0.0-5.0); LYMPH% 35.8 % (15-41); MEAN CELL VOLUME 94.1 fL CALC (80.0-100.0); MEAN CORPUSCULAR HGB 31.4 pG CALC (26.0-32.0); MEAN CORPUSCULAR HGB CONC 33.4 g/dL CAL (32.0-36.0); MONO% 13.6 % (2-13); NEUT# 3.07 thou/uL (2.00-7.15); NEUT% 44.8 % (42-76); RED BLOOD COUNT 3.88 mill/uL (4.20-5.60); RED CELL DISTRI WIDTH 12.4 % (11.5-15.5)
[2024-05-12 06:24] LABS: ALBUMIN 3.2 g/dL (3.2-5.0); BILIRUBIN, TOTAL 0.8 mg/dL (0.02-1.3); CREATININE 0.8 mg/dL (0.5-1.0); POTASSIUM 4.1 mmol/l (3.5-5.1); TOTAL PROTEIN 6.1 g/dL (6.3-8.2)
[2024-05-12 06:36] VITALS: BP 153/59
[2024-05-12] MEDS ORDERED: KETOROLAC TROMETHAMINE 15 MG/ML SDV IV PRN (09:45)
[2024-05-12 10:21] VITALS: BP 142/56
[2024-05-12 10:26] VITALS: BP 142/56
== END 2024-05-12 15:13 | DRG 552 ==
LOC: ED 10:07 → ED-I 12:50 → ED 13:02 → MS2 13:03
PROVIDERS: Family Medicine; Internal Medicine; Nurse Practitioner Family; ADMIT Internal Medicine; ATTEND Internal Medicine
DX: S32.018A Other fracture of first lumbar vertebra, initial encounter for closed fracture (principal); S22.050A Wedge compression fracture of T5-T6 vertebra, initial encounter for closed fracture; S32.028A Other fracture of second lumbar vertebra, initial encounter for closed fracture; S32.038A Other fracture of third lumbar vertebra, initial encounter for closed fracture; I10 Essential (primary) hypertension; E11.9 Type 2 diabetes mellitus without complications; M21.371 Foot drop, right foot; I25.10 Atherosclerotic heart disease of native coronary artery without angina pectoris; E03.9 Hypothyroidism, unspecified; K59.03 Drug induced constipation; T40.2X5A Adverse effect of other opioids, initial encounter; F41.1 Generalized anxiety disorder; W01.0XXA Fall on same level from slipping, tripping and stumbling without subsequent striking against object, initial encounter; Z79.4 Long term (current) use of insulin; Z95.5 Presence of coronary angioplasty implant and graft; Z91.81 History of falling; Z23 Encounter for immunization; Z87.81 Personal history of (healed) traumatic fracture; Z86.14 Personal history of Methicillin resistant Staphylococcus aureus infection
CPT/HCPCS: 90662; J1650; J1815; J1885; J3370